=== PATIENT | female | born 1990 | race Caucasian/White ===

== ENCOUNTER 2020-05-12 06:08 | Day surgery (SDC) | payer BC ==
[~2020-05-12 06:08] MED LIST: Dextrose 5%-0.45% NaCl 1,000 ML IV SCH; Sodium Chloride 0.9% 10 ML Syringe FLUSH PRN
[2020-05-12] MEDS ORDERED: Midazolam 1 MG/ML 2 ML SDV IV ONE ×3 (06:09→07:55)
[2020-05-12] MEDS ORDERED: fentaNYL 100 MCG/2 ML SDV IV ONE ×3 (06:09→07:54)
[2020-05-12] MEDS ORDERED: Midazolam 1 MG/ML 2 ML SDV ONE (06:11)
[2020-05-12] MEDS ORDERED: fentaNYL 100 MCG/2 ML SDV ONE (06:11)
--- NOTE | 2020-05-12 08:47 | OR ---
DATE: 05/12/2020 PROCEDURES: Esophagogastroduodenoscopy and multiple pinch biopsies. INSTRUMENT USED: [id number]-HQ190 Olympus video panendoscope. PREMEDICATIONS: No oral or topical anesthesia used. Fentanyl 100 mcg intravenous, Versed 2 mg intravenous. The procedure was done under pulse oximetry, BP recording, and monitoring engineer. INDICATION: The patient with persistent longstanding heartburn along with dyspepsia and abdominal pain, unexplained and not responsive to medical measures, on H2RA. Esophagogastroduodenoscopy is performed for detection of any active erosive lesions, Sue esophagus and/or malignancy also under consideration, H pylori status to be determined, small bowel biopsies to be obtained for celiac disease if indicated, endoscopic hemostasis therapy if needed. PROCEDURE IN DETAIL: The scope was passed with ease. Adequate visualization of the esophagus was made from proximal to distal areas. No upper esophageal lesions identified. No distal esophageal stricture. No uphill or downhill esophageal varices. No Monica-Ortiz tear. Grade A erosive changes were noted by Adin criteria. No esophageal polyp or tumor mass identified. Z-line was seen at around 35 cm distal to the oral verge. Four quadrant biopsies were taken from the pink columnar epithelium at 35 cm distal to the oral verge and sent for any histopathologic evidence of intestinal metaplasia. No proximal gastric varices noted. Gastric fundus examination by retroflexion showed no polypoid lesions. No gastric ulcer, malignant mass, or vascular ectasia identified. Multiple pinch biopsies were taken from the gastric antrum and proximal body and sent for PyloriTek test for H pylori and histopathology. Duodenal bulb showed no ulcer. Visualized second part of the duodenum was unremarkable. Multiple pinch biopsies, 4 in number, were taken from different areas of the second part of the duodenum and tissues were also obtained from the duodenal bulb at 9 and 12 o'clock positions and sent for any histopathologic evidence of celiac disease. No bleeding was noted from any of the visualized areas at the completion of examination. Photographs were taken of the duodenal bulb, gastric antrum, fundus, and distal esophagus. IMPRESSION: 1. Sliding hiatal hernia. 2. Grade A gastroesophageal reflux disease. The patient tolerated the procedure well. [facility] /[id number]
== END 2020-05-12 10:14 | disposition home or self-care (01) ==
LOC: DL.ENDO 06:08
PROVIDERS: ATTEND Internal Medicine Gastroenterology
DX: K21.9 Gastro-esophageal reflux disease without esophagitis (principal); K44.9 Diaphragmatic hernia without obstruction or gangrene; E66.09 Other obesity due to excess calories; J45.909 Unspecified asthma, uncomplicated; F10.21 Alcohol dependence, in remission; Z90.49 Acquired absence of other specified parts of digestive tract; Z87.828 Personal history of other (healed) physical injury and trauma; Z68.37 Body mass index [BMI] 37.0-37.9, adult
CPT/HCPCS: 43239; 87077; J2250; J3010; J7042

== ENCOUNTER 2021-11-20 09:59 | Emergency (ER) | payer SELFPAY ==
--- NOTE | 2021-11-20 10:23 | EDM.PDOC ---
ED HPI GENERAL MEDICAL PROBLEM - General Chief Complaint: Back Pain or Injury Stated Complaint: FELL ON STEPS HIT BACK OF HEAD/NECK AND BACK Time Seen by Provider: 11/20/21 10:21 Source of Information: Reports: Patient, RN, RN Notes Reviewed History Limitations: Reports: No Limitations - History of Present Illness INITIAL COMMENTS - FREE TEXT/NARRATIVE: Pt presents to ER from home with c/o neck and middle back pain sustained yesterday when she slipped on icy steps and fell backwards. Pt says she landed on the steps with step edges hitting her lower thoracic area just below the bra strap, causing "point tenderness". Pt also c/o severe muscle spasm to the left side of her neck. Denies LOC, radiating pain, N/V, headache, or numbness/tingling. Onset: Sudden Onset Date: 11/19/21 Duration: Constant Location: Reports: Head, Back Quality: Reports: Ache Severity: Severe Improves with: Reports: Immobilization, Rest Worsens with: Reports: Movement Context: Reports: Other (Fall) Associated Symptoms: Reports: No Other Symptoms Back Pain Score (Numeric/FACES): 7 - Related Data Allergies Allergy/AdvReac Type Severity Reaction Status Date / Time No Known Allergies Allergy Verified 05/12/20 06:25 Past Medical History HEENT History: Reports: None Cardiovascular History: Reports: None Respiratory History: Reports: Asthma Gastrointestinal History: Reports: Chronic Diarrhea Genitourinary History: Reports: None SUPERVISOR PASTRY History: Reports: None Musculoskeletal History: Reports: None, Fracture Other Musculoskeletal History: NOSE Neurological History: Reports: Concussion Psychiatric History: Reports: None Endocrine/Metabolic History: Reports: Obesity/BMI 30+ Hematologic History: Reports: None Immunologic History: Reports: None Oncologic (Cancer) History: Reports: Other (See Below) Other Oncologic History: ATYPICAL - Infectious Disease History Infectious Disease History: Reports: Chicken Pox - Past Surgical History Head Surgeries/Procedures: Reports: None HEENT Surgical History: Reports: Oral Surgery Cardiovascular Surgical History: Reports: None Respiratory Surgical History: Reports: None GI Surgical History: Reports: Appendectomy Female Surgical History: Reports: None Endocrine Surgical History: Reports: None Neurological Surgical History: Reports: None Musculoskeletal Surgical History: Reports: None Oncologic Surgical History: Reports: None Dermatological Surgical History: Reports: Skin Biopsy, Other (See Below) Social & Family History - Family History Family Medical History: No Pertinent Family History - Caffeine Use Caffeine Use: Reports: None - Living Situation & Occupation Living situation: Reports: with Family ED ROS GENERAL - Review of Systems Review Of Systems: Comprehensive ROS is negative, except as noted in HPI. ED EXAM,LOWER BACK PAIN/INJURY - Physical Exam Exam: See Below Exam Limited By: No Limitations General Appearance: Alert, WD/WN, No Apparent Distress Eye Exam: Bilateral Eye: EOMI, Normal Inspection, PERRL Ears: Normal External Exam, Normal Canal, Hearing Grossly Normal, Normal TMs Nose: Normal Inspection, Normal Mucosa, No Blood Throat/Mouth: Normal Inspection, Normal Lips, Normal Voice, No Airway Compromise Head: Normocephalic Neck: Normal Inspection, Supple, Non-Tender, Full Range of Motion Respiratory/Chest: No Respiratory Distress, Lungs Clear, Chest Non-Tender Cardiovascular: Normal Peripheral Pulses, Regular Rate, Rhythm, No Edema GI/Abdominal: Normal Bowel Sounds, Soft, Non-Tender, No Organomegaly, No Distention, No Abnormal Bruit, No Mass Rectal (Female) Exam: Deferred Back Exam: Decreased Range of Motion, Muscle Spasm (Cervical Left>Rt. Paraspinal thoracic.), Paraspinal Tenderness, Vertebral Tenderness (Overlying T-10 to T- 12). No: CVA Tenderness (L), CVA Tenderness (R) Extremities: Normal Inspection, Normal Range of Motion, Non-Tender, No Pedal Edema, Normal Capillary Refill Neurological: Alert, Normal Mood/Affect, Normal Dorsiflexion, CN II-XII Intact, Normal Plantar Flexion, Normal Gait, No Motor/Sensory Deficits, Oriented x 3 Psychiatric: Normal Affect, Normal Mood Skin Exam: Warm, Dry, Intact, Normal Color, No Rash Course - Vital Signs Last Recorded V/S: Last Vital Signs Temp 98.5 F 11/20/21 10:24 Pulse 88 11/20/21 10:24 Resp 14 11/20/21 10:24 BP 123/89 11/20/21 10:24 Pulse Ox 96 11/20/21 10:24 - Orders/Labs/Meds Labs: Laboratory Tests 11/20/21 Range/Units 10:31 Urine HCG, Qual Negative Departure - Departure Time of Disposition: 11:55 Disposition: Home, Self-Care 01 Condition: Good Clinical Impression: Cervical paraspinal muscle spasm Acute thoracic back pain Qualifiers: Back pain laterality: midline Qualified Code(s): M54.6 - Pain in thoracic spine Fall on steps Qualifiers: Encounter type: initial encounter Qualified Code(s): W10.8XXA - Fall (on) (from) other stairs and steps, initial encounter - Discharge Information *PRESCRIPTION DRUG MONITORING PROGRAM REVIEWED*: Not Applicable *COPY OF PRESCRIPTION DRUG MONITORING REPORT IN PATIENT [place]: Not Applicable Instructions: Acute Back Pain, Adult, Acute Torticollis, Adult Forms: ED Department Discharge Additional Instructions: Rx: Cyclobenzaprine 10mg *Do not drive while under the influence of this medication. Rx: Naprosyn 500mg Alternate heating pad and ice packs to area(s) of pain. Follow up in clinic if not improving as expected. Sepsis Event Note (ED) - Focused Exam Vital Signs: Vital Signs Temp Pulse Resp BP Pulse Ox 11/20/21 10:24 98.5 F 88 14 123/89 96
--- NOTE | 2021-11-20 11:40 | CR ---
EXAMINATION: Cervical Spine 2V SEX: Female AGE: 31 years CLINICAL HISTORY: 31-year-old female injured (Fell on steps) with neck pain. INTERPRETATION: Negative. 1. Homogeneous normal bone mineral density. 2. Normal height and alignment of the 7 cervical and first thoracic vertebra. 3. No sign of congenital abnormality, pathologic skeletal lesion, prevertebral soft tissue swelling, cervical fracture, spondylolisthesis or abnormal intervertebral disc space narrowing. No jumped locked facets. 4. No cervical rib anomalies. First and second ribs unremarkable. 5. Lung apices clear.
--- NOTE | 2021-11-20 11:43 | CR ---
EXAMINATION: Thoracic Spine 2V SEX: Female AGE: 31 years CLINICAL HISTORY: 31-year-old female injured (Fell on steps) complaining of midline low thoracic pain. INTERPRETATION: 1. Subtle thoracolumbar scoliosis. 2. No sign of congenital abnormality or pathologic skeletal lesion. Posterior ribs unremarkable. 3. Tiny marginal spurs (spondylolysis) at the thoracolumbar juncture. Some motion artifact. 4. No sign of paraspinal soft tissue swelling, thoracic fracture or spondylolisthesis. 5. No foreign bodies. 6. Normal cardiac silhouette and mediastinal width. Lung cox clear where visualized.
== END 2021-11-20 12:18 | disposition home or self-care (01) ==
LOC: DL.ED 09:59
DX: M54.6 Pain in thoracic spine (principal); M62.838 Other muscle spasm; J45.909 Unspecified asthma, uncomplicated; E66.9 Obesity, unspecified; Z68.28 Body mass index [BMI] 28.0-28.9, adult; W10.9XXA Fall (on) (from) unspecified stairs and steps, initial encounter
CPT/HCPCS: 72040; 72070; 81025; 99283-25